=== PATIENT | male | born 1960 | race Caucasian/White ===

== ENCOUNTER 2017-03-27 05:53 | Emergency (ER) | payer OTHER ==
--- NOTE | ~2017-03-27 | CT4 ---
[facility] A Service of [facility] & [facility] RADIOLOGY TEXT RESULTS PATIENT: EUNICE HAYWOOD LOCATION: [facility] : 62 UNIT #: [id number] AGE: [address]: Michael Alexander MD SEX: M ORDER DR: [id number] [facility] [address] [place], [place] [address] [id number] E MR#: [id number] #: [id number] NAME: EUNICE HAYWOOD. : 1960 SEX: M STUDY DATE/TIME: 03/27/2017 6:34 UNIT: [facility] ROOM: STUDY DESCRIPTION: CT Abd and Pelv Wo Cont Attending Physician: Michael Alexander M.D. Ordering Physician: Jose Ramírez Aprn Primary Care Physician: Doug Dawson M.D. MEDICAL IMAGING REPORT This report is preliminary unless electronic signature is present EXAM CT abdomen and pelvis without contrast HISTORY Hematuria, right flank pain since 04:00 a.m., nausea. COMMENT CT abdomen and pelvis performed without IV or oral contrast media using a urinary tract stone protocol. The lack of intravenous and oral contrast media limits evaluation for pathology other than urinary tract calculus disease. Comparison is from 01/04/2015. This CT exam was performed with one or more of the following radiation dose reduction techniques: automatic exposure control, adjustment of mA and/or kV according to patient size, and iterative reconstruction. Assessment of the lung bases shows a small amount of dependent atelectasis. There are multiple low-attenuation liver lesions again identified which are probably cysts. Some of them are however, less than a centimeter in too small to characterize further. On comparison to the study from 01/04/2015 they were present and are relatively unchanged. Gallbladder, spleen, adrenal glands unremarkable. Noncontrast pancreas is mildly fatty replaced. Evaluation of the right kidney shows right-side perinephric stranding and multiple intrarenal calculi. There is an obstructing calculus in the distal right ureter about 4 mm in dimension and then an obstructing calculus at the distal aspect of the right ureterovesical junction about 4 mm in dimension with what is probably a second smaller adjacent calculus. These findings result in moderate right-sided hydroureteronephrosis with right-sided perinephric stranding and mild right renal enlargement. The [facility] A Service of [facility] RADIOLOGY TEXT RESULTS PATIENT: EUNICE HAYWOOD LOCATION: [facility] : 62 UNIT #: [id number] AGE: [address]: Michael Alexander MD SEX: M ORDER DR: multiple nonobstructing calculi in the right kidney are most prominent in the upper pole and the largest of these is about 7-8 mm in dimension. There are also multiple calculi within the left kidney which are nonobstructing, largest of these in the interpolar area about a centimeter in dimension. On comparison to prior, size and number of the intrarenal calculi are increased and the hydronephrosis on the right is new. There is no evidence for an abdominal aortic aneurysm. Evaluation of the remainder the pelvis shows the bladder is decompressed. Tiny densities are seen in the region of the left ureterovesical junction which could be tiny calculi but if they are they are nonobstructing. There is an unremarkable appearance to the appendix. There is no evidence for bowel obstruction. There is no free intraperitoneal air. Mild degenerative changes in the spine with exaggeration of lumbar lordosis and some chronic mild compression deformities at the lower thoracic spine. 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 Please correlate for clinical evidence of seronegative spondylarthritis. Small fat-containing right inguinal hernia. IMPRESSION 1. There is an obstructing calculus on the right in the distal right ureter about 4 mm dimension. Distal to this is a second obstructing calculus within the ureterovesical junction itself about 4 mm in dimension and there may be a tiny calculus just beyond this. 2. There are multiple bilateral nonobstructing intrarenal calculi. The burden of calculi is considerably increased on comparison study from 2015 and the hydronephrosis is new. Overall moderate right-sided hydroureteronephrosis with right-sided perinephric stranding and mild right renal enlargement. 3. Redemonstration of what are likely multiple liver cysts incompletely characterized on a stone protocol study. 4. No evidence for bowel obstruction, free air or appendicitis. 5. Small fat-containing right inguinal hernia. 6. 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 Please correlate for clinical evidence of a seronegative spondylarthritis. Dictated by... Regina Sue M.D. THIS IS AN ELECTRONICALLY VERIFIED REPORT Regina Sue M.D. at 03/28/2017 4:51 PM SAC/cynthia TD: 03/27/2017 23:14 [facility] A Service of [facility] RADIOLOGY TEXT RESULTS PATIENT: EUNICE HAYWOOD LOCATION: [facility] : 62 UNIT #: [id number] AGE: [address]: Michael Alexander MD SEX: M ORDER DR: RAFAEL #: [id number] MEDICAL IMAGING REPORT Page 1 of 1 COPY
[~2017-03-27 05:53] MED LIST: CIPRO PO; IBUPROFEN PO; IBUPROFEN800 MG PO; KEFLEX PO; LORTAB 5/500 TA1 TA1 PO; NO MEDICATIONS; PHENERGAN25 MG PO
[2017-03-27 07:01] LABS: URINE SOURCE CLEAN CATCH
[2017-03-27 07:05] LABS: BASOPHIL% 0.4 % (0-2.5); EOSINOPHIL# 0.3 X10e3 (0-0.7); EOSINOPHIL% 3.7 % (0.0-7.0); HEMATOCRIT 42.1 % (38.0-50.0); HEMOGLOBIN 14.4 gm/dL (13.0-16.0); MEAN CELL VOLUME 91.6 FL (83-96); MEAN CORPUSCULAR HEMOGLOBIN 31.4 PG (28-34); MEAN CORPUSCULAR HGB CONC 34.2 g/dL (30-36); MONOCYTE# 0.7 X10e3 (0-1.0); MONOCYTE% 9.9 % (3.0-12.0); NEUTROPHIL# 4.5 X10e3 (1.5-7.1); PLATELET COUNT 242 X10e3 (140-420); RED BLOOD COUNT 4.59 X10e (3.90-5.60); WHITE BLOOD COUNT 7.5 X10e3 (4.0-10.5)
[2017-03-27 07:05] LABS: URINE APPEARANCE CLOUDY; URINE BILIRUBIN NEG (NEG); URINE BLOOD 3+ (NEG); URINE COLOR ORANGE; URINE GLUCOSE NEG (NEG); URINE KETONE NEG (NEG); URINE LEUKOCYTE ESTERASE 1+ (NEG); URINE NITRATE NEG (NEG); URINE PROTEIN 2+ (NEG); URINE UROBILINOGEN 0.2 MG/DL (NEG)
[2017-03-27 07:07] LABS: DIFF IND NO
[2017-03-27 07:07] LABS: CULTURE INDICATED? YES; URBCS1 AUWI INNUM /[HPF] (0-2); URINE BACTERIA AUWI NEG (NEGATIVE); URINE SQUAMOUS EPITHELIAL CELL NONE SEEN /[HPF]
[2017-03-27 07:36] LABS: BUN/CREATININE RATIO 10.5; CALCIUM SERUM 8.8 mg/dL (8.4-10.2); GLOM FILT RATE Estimated 36.5 mL/min (>60); POTASSIUM 4.1 mmol/L (3.5-5.1)
[2017-03-27 08:44] LABS: ALBUMIN SERUM 3.9 g/dL (3.5-5.0); ALKALINE PHOSPHATASE 95 U/L (32-92); ALT (SGPT) 18 U/L (10-40); AST (SGOT) 22 U/L (10-42); BILIRUBIN,TOTAL 0.5 mg/dL (0.2-2.0); PROTEIN TOTAL SERUM 7.1 g/dL (6.0-8.3)
[2017-03-27 08:46] LABS: BILIRUBIN, DIRECT <0.1 mg/dL (0.0-0.2); BILIRUBIN,INDIRECT 0.4 mg/dL (0.0-0.9)
== END 2017-03-27 08:47 | disposition home or self-care (01) ==
LOC: CED 05:53
PROVIDERS: Nurse Practitioner Family
DX: N13.2 Hydronephrosis with renal and ureteral calculous obstruction (principal); M10.9 Gout, unspecified; Z98.890 Other specified postprocedural states; Z88.8 Allergy status to other drugs, medicaments and biological substances
CPT/HCPCS: 74176; 80048; 80076; 81003; 83690; 85025; 87086; 96374; 96375; 99284; J1885; J2060; J2270; J2405